=== PATIENT | male | born 1930 | race Two or more races ===

== ENCOUNTER 2019-01-24 02:28 | Inpatient (IN) | payer MEDICARE, OTHER ==
[~2019-01-24] VITALS: Ht 167.6 cm; Wt 64.0 kg
--- NOTE | 2019-01-24 02:44 | NUR ---
Pt presents to ed from [facility] for sob tonight s/t laying down. [place] and has felt sob since traveling to [facility]. +trop and +bnp noted @ [facility] w/o ekg changes or hx of chf. Denies cp at this time. States still sob. All monitoring applied. Bp elevated. Md aware. Family at bedside.
[2019-01-24] MEDS ORDERED: TERA2CAP3 PO (02:47)
[2019-01-24] MEDS ORDERED: HYDR-3341 PO (02:47)
[2019-01-24] MEDS ORDERED: LOSA100T14 PO (02:47)
[2019-01-24] MEDS ORDERED: OMEP-110 PO (02:47)
[2019-01-24] MEDS ORDERED: ATOR10TA9 PO (02:47)
--- NOTE | 2019-01-24 02:51 | NUR ---
Given aspirin and lasix via sending facility.
[2019-01-24] MEDS ORDERED: hydrALAzine 20 MG/ML, 1ML ONE (02:54)
--- NOTE | 2019-01-24 02:59 | NUR ---
Pt on 1l nc for comfort. Pt ra sat of 92-96%, but pt states feeling better on o2.
[2019-01-24] MEDS ORDERED: hydrALAzine 20 MG/ML, 1ML IV ONE (03:00)
[2019-01-24 03:01] LABS: BASOPHILS # (AUTO) 0.03 x10^3/uL (0-0.1); BASOPHILS % (AUTO) 1 % (0-1); EOSINOPHILS # (AUTO) 0.24 x10^3/uL (0-0.4); EOSINOPHILS % (AUTO) 3 % (1-7); LYMPHOCYTES # (AUTO) 0.74 x10^3/uL (1-3.4); LYMPHOCYTES % (AUTO) 10 % (22-44); MD NO; MEAN CORPUSCULAR HEMOGLOBIN 33.4 pg (27.5-34.5); MEAN CORPUSCULAR HGB CONC 32.8 g/dL (33.2-36.2); MEAN CORPUSCULAR VOLUME 101.9 fL (81-97); MEAN PLATELET VOLUME 7.4 fL (7.4-10.4); MONOCYTES # (AUTO) 0.71 x10^3/uL (0.2-0.8); MONOCYTES % (AUTO) 10 % (2-9); NEUTROPHILS # (AUTO) 5.58 x10^3/uL (1.8-6.8); NEUTROPHILS % (AUTO) 77 % (42-75); PLATELET COUNT 168 x10^3/uL (130-400); RED BLOOD COUNT 3.87 x10^6/uL (4.38-5.82); RED CELL DISTRIBUTION WIDTH 12.8 % (9.4-14.8)
[2019-01-24 03:09] LABS: ALBUMIN 4.1 g/dL (3.4-5.0); ANION GAP 9 mmol/L (5-15); CALCIUM 8.5 mg/dL (8.5-10.1); CHLORIDE 105 mmol/L (98-107); CREATININE 1.43 mg/dL (0.7-1.3)
--- NOTE | 2019-01-24 03:11 | NUR ---
2nd iv initiated for potential of fibrinolytic therapy.
[2019-01-24 03:17] LABS: TROPONIN I 0.602 ng/mL (0.000-0.045)
--- NOTE | 2019-01-24 03:18 | NUR ---
Pt to ct.
[2019-01-24] MEDS ORDERED: NITROGLYCERIN SINGLE TAB 0.4 MG SL ONE (04:13)
--- NOTE | 2019-01-24 04:19 | NUR ---
Hospitalist at bedside.
[2019-01-24] MEDS ORDERED: NITROGLYCERIN SINGLE TAB 0.4 MG SL PRN (04:30)
[2019-01-24] MEDS ORDERED: OMNIPAQUE 350 MG/ML, 100ML BOTTLE ONE (05:08)
[2019-01-24 05:14] VITALS: BP 153/72
[2019-01-24] MEDS ORDERED: HEPARIN 5,000 UNITS/ML, 1ML IV ONE (05:30)
[2019-01-24] MEDS ORDERED: morphine SULFATE 10 MG/ML, 1ML IVPush PRN (05:30)
[2019-01-24] MEDS ORDERED: HEPARIN 25,000 UNITS/500ML PMX 500 ML IV PRN (05:30)
[2019-01-24] MEDS ORDERED: hydrALAzine 20 MG/ML, 1ML IVPush PRN (05:30)
[2019-01-24] MEDS ORDERED: ACETAMINOPHEN 325 MG TABLET PO PRN (05:30)
[2019-01-24] MEDS ORDERED: HEPARIN 5,000 UNITS/ML, 1ML IV PRN (05:30)
[2019-01-24] MEDS ORDERED: NITROGLYCERIN 0.4 MG BOTTLE (25 TABS) SL PRN (05:30)
[2019-01-24 06:42] LABS: TROPONIN I 0.493 ng/mL (0.000-0.045)
[2019-01-24 06:43] VITALS: BP 168/90
[2019-01-24] MEDS ORDERED: FUROSEMIDE 20 MG TABLET PO SCH (07:30)
[2019-01-24] MEDS: TERAZOSIN 2MG CAPSULE PO SCH (07:38)
[2019-01-24] MEDS: OMEPRAZOLE 20 MG CAPSULE.DR PO SCH (07:39)
[2019-01-24] MEDS: ASPIRIN 325 MG TABLET EC PO SCH (07:39)
[2019-01-24] MEDS: FUROSEMIDE 40 MG/4 ML IV SCH ×2 (11:00→21:46)
[2019-01-24 12:31] LABS: TROPONIN I 0.248 ng/mL (0.000-0.045)
[2019-01-24 14:03] VITALS: BP 206/79
[2019-01-24] MEDS ORDERED: ATEN25TA PO (14:42)
[2019-01-24] MEDS ORDERED: BRIM5DRO4 OP (14:42)
[2019-01-24] MEDS ORDERED: LATA7.5D OP (14:42)
[2019-01-24] MEDS ORDERED: DORZ10DR28 OP (14:42)
[2019-01-24] MEDS ORDERED: HYDR-3343 PO (14:50)
[2019-01-24 15:19] VITALS: BP 140/66
[2019-01-24 20:26] VITALS: BP 154/78
[2019-01-24] MEDS ORDERED: DORZOLAMIDE OPHTH 2%, 10ML EACHEYE SCH (21:00)
[2019-01-24 21:45] VITALS: BP 186/77
[2019-01-24] MEDS: BRIMONIDINE TART. OPHTH 0.2%, 5ML EACHEYE SCH (21:46)
[2019-01-24] MEDS: LATANOPROST OPHTH 0.005%, 2.5ML EACHEYE SCH (21:46)
[2019-01-24] MEDS: ATORVASTATIN 40 MG TABLET PO SCH (21:46)
[2019-01-24] MEDS: DORZOLAMIDE HCL OP SCH (21:47)
[2019-01-24] MEDS: TIMOLOL MALEATE OP SCH (21:47)
[2019-01-25 00:12] VITALS: BP 152/66
[2019-01-25 01:47] LABS: BASOPHILS # (AUTO) 0.02 x10^3/uL (0-0.1); BASOPHILS % (AUTO) 0 % (0-1); EOSINOPHILS # (AUTO) 0.14 x10^3/uL (0-0.4); EOSINOPHILS % (AUTO) 2 % (1-7); LYMPHOCYTES # (AUTO) 0.78 x10^3/uL (1-3.4); LYMPHOCYTES % (AUTO) 9 % (22-44); MD NO; MEAN CORPUSCULAR HEMOGLOBIN 33.1 pg (27.5-34.5); MEAN CORPUSCULAR HGB CONC 32.6 g/dL (33.2-36.2); MEAN CORPUSCULAR VOLUME 101.5 fL (81-97); MEAN PLATELET VOLUME 7.8 fL (7.4-10.4); MONOCYTES # (AUTO) 0.88 x10^3/uL (0.2-0.8); MONOCYTES % (AUTO) 10 % (2-9); NEUTROPHILS # (AUTO) 6.74 x10^3/uL (1.8-6.8); NEUTROPHILS % (AUTO) 79 % (42-75); PLATELET COUNT 181 x10^3/uL (130-400); RED BLOOD COUNT 3.94 x10^6/uL (4.38-5.82); RED CELL DISTRIBUTION WIDTH 13.2 % (9.4-14.8)
[2019-01-25 02:01] LABS: ANION GAP 11 mmol/L (5-15); CALCIUM 8.6 mg/dL (8.5-10.1); CHLORIDE 102 mmol/L (98-107); CHOLESTEROL, TOTAL 134 mg/dL (140-239); CREATININE 1.42 mg/dL (0.7-1.3); TRIGLYCERIDES 42 mg/dL (50-200); VLDL CHOLESTEROL 8 mg/dL (0-25)
[2019-01-25 02:04] LABS: CHOL/HDL RATIO 1.9; HDL CHOL % 53 % (26-37); HDL CHOLESTEROL (DIRECT) 71 mg/dL (40-60); LDL CHOLESTEROL,CALCULATED 55 mg/dL (54-169); LDL/HDL RATIO 0.8 (0.5-3.0)
[2019-01-25] MEDS: ASPIRIN 325 MG TABLET EC PO SCH (06:35)
[2019-01-25] MEDS ORDERED: POTASSIUM CHLORIDE 20 MEQ TAB.ER.PRT PO ONE (07:00)
[2019-01-25 07:25] VITALS: BP 194/79
[2019-01-25] MEDS ORDERED: LORazepam 0.5MG TABLET PO PRN (08:00)
[2019-01-25] MEDS: FUROSEMIDE 40 MG TABLET PO SCH (08:03)
[2019-01-25] MEDS: TERAZOSIN 2MG CAPSULE PO SCH (08:03)
[2019-01-25] MEDS: OMEPRAZOLE 20 MG CAPSULE.DR PO SCH (08:03)
[2019-01-25] MEDS ORDERED: REGADENOSON 0.4 MG/5 ML SYRINGE ONE (08:40)
[2019-01-25] MEDS: TIMOLOL MALEATE OP SCH ×2 (09:00→20:20)
[2019-01-25] MEDS: BRIMONIDINE TART. OPHTH 0.2%, 5ML EACHEYE SCH ×2 (09:00→20:20)
[2019-01-25] MEDS: DORZOLAMIDE HCL OP SCH ×2 (09:00→20:20)
[2019-01-25 10:30] VITALS: BP 146/86
[2019-01-25 12:14] VITALS: BP 134/70
[2019-01-25] MEDS: HEPARIN 5,000 UNITS/ML, 1ML SQ SCH (13:01)
[2019-01-25 16:21] VITALS: BP 129/71
[2019-01-25 20:19] VITALS: BP 127/66
[2019-01-25] MEDS: ATORVASTATIN 40 MG TABLET PO SCH (20:20)
[2019-01-25] MEDS: LATANOPROST OPHTH 0.005%, 2.5ML EACHEYE SCH (20:20)
[2019-01-26] MEDS: HEPARIN 5,000 UNITS/ML, 1ML SQ SCH (02:10)
[2019-01-26 03:11] VITALS: BP 108/68
[2019-01-26] MEDS: ASPIRIN 325 MG TABLET EC PO SCH (05:49)
[2019-01-26 06:20] LABS: CHLORIDE 103 mmol/L (98-107)
[2019-01-26 06:25] LABS: ANION GAP 8 mmol/L (5-15); CALCIUM 8.2 mg/dL (8.5-10.1); CREATININE 1.86 mg/dL (0.7-1.3)
[2019-01-26 07:04] VITALS: BP 186/74
[2019-01-26] MEDS ORDERED: POTASSIUM CHLORIDE 20 MEQ TAB.ER.PRT PO ONE (07:30)
[2019-01-26] MEDS ORDERED: LATA2.5D3 EACHEYE (07:32)
[2019-01-26] MEDS ORDERED: FURO20TA3 PO (07:32)
[2019-01-26] MEDS ORDERED: HYDR-3343 PO (07:32)
[2019-01-26] MEDS ORDERED: POTA10TA11 PO (07:32)
[2019-01-26] MEDS: TERAZOSIN 2MG CAPSULE PO SCH (08:27)
[2019-01-26] MEDS: OMEPRAZOLE 20 MG CAPSULE.DR PO SCH (08:28)
[2019-01-26] MEDS: FUROSEMIDE 40 MG TABLET PO SCH (08:28)
[2019-01-26] MEDS: BRIMONIDINE TART. OPHTH 0.2%, 5ML EACHEYE SCH (08:40)
[2019-01-26] MEDS: DORZOLAMIDE HCL OP SCH (08:40)
[2019-01-26] MEDS: TIMOLOL MALEATE OP SCH (08:40)
== END 2019-01-26 12:23 | disposition home or self-care (01) | DRG 280 ==
LOC: ED 02:44 → EDIP 03:55 → 5SO 05:08 → DCLOUNGE 01-26 12:04
PROVIDERS: ADMIT Family Medicine; ATTEND Family Medicine
DX: I13.0 Hypertensive heart and chronic kidney disease with heart failure and stage 1 through stage 4 chronic kidney disease, or unspecified chronic kidney disease (principal); I50.43 Acute on chronic combined systolic (congestive) and diastolic (congestive) heart failure; I21.A1 Myocardial infarction type 2; N17.0 Acute kidney failure with tubular necrosis; D53.9 Nutritional anemia, unspecified; E78.00 Pure hypercholesterolemia, unspecified; E78.5 Hyperlipidemia, unspecified; F41.9 Anxiety disorder, unspecified; I16.0 Hypertensive urgency; I27.20 Pulmonary hypertension, unspecified; I37.1 Nonrheumatic pulmonary valve insufficiency; K21.9 Gastro-esophageal reflux disease without esophagitis; N40.0 Benign prostatic hyperplasia without lower urinary tract symptoms; D75.89 Other specified diseases of blood and blood-forming organs; Z88.8 Allergy status to other drugs, medicaments and biological substances; Z82.49 Family history of ischemic heart disease and other diseases of the circulatory system; Z79.899 Other long term (current) drug therapy; Z90.49 Acquired absence of other specified parts of digestive tract
CPT/HCPCS: 36415; 36600; 71275; 78452; 80048; 80061; 82040; 82800; 83880; 84484; 85025; 85520; 93005; 93017; 93306; 96374; 96375; 99291; G0378; J1644; J1940; J2785; Q9967; A9502; C9898; J0360